=== PATIENT | male | born 1960 | race Hispanic/Latino ===

== ENCOUNTER 2019-01-02 20:04 | Inpatient (IN) | payer SELFPAY ==
[~2019-01-02] VITALS: Ht 167.6 cm; Wt 92.5 kg
[2019-01-02 20:33] LABS: BASOPHILS % (AUTO) 0.6 % (0.0-5.0); EOSINOPHILS % (AUTO) 4.5 % (0.0-8.0); LYMPHOCYTES % (AUTO) 30.9 % (21.0-51.0); MEAN CORPUSCULAR HEMOGLOBIN 30.6 pg (27.0-33.0); MEAN CORPUSCULAR HGB CONC 34.7 g/dL (32.0-36.0); MEAN CORPUSCULAR VOLUME 88.3 fL (79-99); MONOCYTES % (AUTO) 6.9 % (3.0-13.0); NEUTROPHILS % (AUTO) 57.1 % (40.0-77.0); PLATELET COUNT (AUTO) 243 K/uL (130-400); RED BLOOD CELL COUNT(AUTO) 4.54 MIL/uL (4.50-6.20); RED CELL DISTRIBUTION WIDTH 13.4 % (11.0-15.5); WHITE BLOOD COUNT (AUTO) 9.8 K/uL (4.8-10.8)
[2019-01-02 20:54] LABS: CREATININE 0.9 mg/dL (0.5-1.5); POTASSIUM 3.9 mmol/L (3.5-5.1)
[2019-01-02 20:59] LABS: ALBUMIN 3.4 g/dL (3.5-5.0); BILIRUBIN,TOTAL 0.3 mg/dL (0.2-1.0); TOTAL PROTEIN, SERUM 7.7 g/dL (6.0-8.3)
[2019-01-02 21:04] LABS: B-TYPE NATRIURETIC PEPTIDE 20 pg/mL (0-100)
[2019-01-03 00:20] LABS: CHOLESTEROL 221 mg/dL (<200); HDL CHOLESTEROL 25 mg/dL (29-71); LDL DIRECT 139 mg/dL (0-99); TRIGLYCERIDES 333 mg/dL (30-200)
[2019-01-03 00:23] LABS: HEMOGLOBIN A1C 8.4 % (4.0-6.0)
[2019-01-03] MEDS: IPRATROPIUM/ALBUTEROL SULFATE 3 ML SOLUTION IH SCH ×6 (02:00→22:43)
[2019-01-03] MEDS ORDERED: IPRATROPIUM/ALBUTEROL SULFATE 3 ML SOLUTION IH ONE ×3 (07:19→14:34)
[2019-01-03 07:27] LABS: CREATININE 0.9 mg/dL (0.5-1.5); POTASSIUM 3.9 mmol/L (3.5-5.1)
[2019-01-03 07:44] LABS: BASOPHILS % (AUTO) 0.8 % (0.0-5.0); EOSINOPHILS % (AUTO) 4.2 % (0.0-8.0); HEMATOCRIT 40.4 % (42-54); LYMPHOCYTES % (AUTO) 28.8 % (21.0-51.0); MEAN CORPUSCULAR HEMOGLOBIN 30.1 pg (27.0-33.0); MEAN CORPUSCULAR HGB CONC 34.1 g/dL (32.0-36.0); MEAN CORPUSCULAR VOLUME 88.4 fL (79-99); MONOCYTES % (AUTO) 8.2 % (3.0-13.0); PLATELET COUNT (AUTO) 254 K/uL (130-400); RED BLOOD CELL COUNT(AUTO) 4.57 MIL/uL (4.50-6.20); RED CELL DISTRIBUTION WIDTH 13.6 % (11.0-15.5); WHITE BLOOD COUNT (AUTO) 8.6 K/uL (4.8-10.8)
[2019-01-03] MEDS ORDERED: ASPIRIN 81MG TAB.CHEW ONE (07:59)
[2019-01-03] MEDS ORDERED: ATORVASTATIN CALCIUM 20 MG TABLET ONE (08:00)
[2019-01-03] MEDS ORDERED: ENOXAPARIN SODIUM 40 MG/0.4 ML SYRINGE SQ ONE (08:00)
[2019-01-03] MEDS ORDERED: FAMOTIDINE 20MG TAB 20 MG TAB ONE (08:00)
[2019-01-03] MEDS ORDERED: LEVETIRACETAM 500 MG TABLET PO ONE (08:01)
[2019-01-03] MEDS ORDERED: GUAIFENESIN-CODEINE 5 ML SYRUP ONE (08:02)
[2019-01-03] MEDS: ATORVASTATIN CALCIUM 20 MG TABLET PO SCH (09:00)
[2019-01-03] MEDS: LEVETIRACETAM 250 MG TABLET PO SCH ×2 (09:00→21:53)
[2019-01-03] MEDS: FAMOTIDINE 20MG TAB 20 MG TAB PO SCH ×2 (09:00→21:53)
[2019-01-03] MEDS: ASPIRIN 81MG TAB.CHEW PO SCH (09:00)
[2019-01-03] MEDS: ENOXAPARIN SODIUM 40 MG/0.4 ML SYRINGE SQ SCH (09:00)
[2019-01-03] MEDS: INSULIN HUMULIN R 100 UNIT/ML 3ML SQ SCH ×2 (16:30→21:00)
[2019-01-03 17:01] VITALS: BP 123/75
[2019-01-03 19:55] VITALS: BP 133/71
[2019-01-03] MEDS: GUAIFENESIN-CODEINE 5 ML SYRUP PO PRN (21:52)
[2019-01-03 23:46] VITALS: BP 112/65
[2019-01-04] MEDS: IPRATROPIUM/ALBUTEROL SULFATE 3 ML SOLUTION IH SCH ×6 (01:07→21:54)
[2019-01-04 03:51] VITALS: BP 124/77
[2019-01-04] MEDS: INSULIN HUMULIN R 100 UNIT/ML 3ML SQ SCH ×4 (05:44→21:00)
[2019-01-04] MEDS: GUAIFENESIN-CODEINE 5 ML SYRUP PO PRN (06:58)
[2019-01-04 07:43] VITALS: BP 121/69
[2019-01-04] MEDS: ATORVASTATIN CALCIUM 20 MG TABLET PO SCH (08:17)
[2019-01-04] MEDS: ASPIRIN 81MG TAB.CHEW PO SCH (08:17)
[2019-01-04] MEDS: LEVETIRACETAM 250 MG TABLET PO SCH ×2 (08:17→21:09)
[2019-01-04] MEDS: FAMOTIDINE 20MG TAB 20 MG TAB PO SCH ×2 (08:17→21:09)
[2019-01-04] MEDS: ENOXAPARIN SODIUM 40 MG/0.4 ML SYRINGE SQ SCH (08:18)
[2019-01-04 11:34] VITALS: BP 133/64
[2019-01-04] MEDS: GUAIFENESIN-CODEINE 5 ML SYRUP PO SCH ×2 (12:17→18:25)
[2019-01-04] MEDS ORDERED: METF-444 PO (12:29)
[2019-01-04 16:19] VITALS: BP 126/77
--- NOTE | 2019-01-04 19:08 | NUR ---
cm note met with patient and states resides at home with spouse independnet with ambulation and adls. no dme. was here visiting from [place]. [facility] dc plan is to return back to [place]. [facility] dc needs. has md in [place] he can see. Addendum: 01/04/19 at 1909 by KEYLA RESENDIZ CM Amended: Links added.
[2019-01-04 20:00] VITALS: BP 125/72
[2019-01-05 00:14] VITALS: BP 119/71
[2019-01-05] MEDS: GUAIFENESIN-CODEINE 5 ML SYRUP PO SCH ×5 (00:38→23:40)
[2019-01-05] MEDS: IPRATROPIUM/ALBUTEROL SULFATE 3 ML SOLUTION IH SCH ×4 (01:07→14:28)
[2019-01-05 04:00] VITALS: BP 106/64
[2019-01-05 05:39] LABS: HEMATOCRIT 38.9 % (42-54); MEAN CORPUSCULAR HEMOGLOBIN 30.1 pg (27.0-33.0); MEAN CORPUSCULAR HGB CONC 33.5 g/dL (32.0-36.0); MEAN CORPUSCULAR VOLUME 89.9 fL (79-99); PLATELET COUNT (AUTO) 254 K/uL (130-400); RED BLOOD CELL COUNT(AUTO) 4.33 MIL/uL (4.50-6.20); RED CELL DISTRIBUTION WIDTH 13.5 % (11.0-15.5); WHITE BLOOD COUNT (AUTO) 9.7 K/uL (4.8-10.8)
[2019-01-05 05:44] LABS: CREATININE 0.9 mg/dL (0.5-1.5); POTASSIUM 3.7 mmol/L (3.5-5.1)
[2019-01-05] MEDS: INSULIN HUMULIN R 100 UNIT/ML 3ML SQ SCH ×4 (06:55→20:28)
[2019-01-05 08:21] VITALS: BP 117/73
[2019-01-05] MEDS: FAMOTIDINE 20MG TAB 20 MG TAB PO SCH ×2 (08:32→19:31)
[2019-01-05] MEDS: LEVETIRACETAM 250 MG TABLET PO SCH ×2 (08:32→19:31)
[2019-01-05] MEDS: ASPIRIN 81MG TAB.CHEW PO SCH (08:32)
[2019-01-05] MEDS: ATORVASTATIN CALCIUM 20 MG TABLET PO SCH (08:32)
[2019-01-05] MEDS: ENOXAPARIN SODIUM 40 MG/0.4 ML SYRINGE SQ SCH (08:34)
[2019-01-05] MEDS ORDERED: LEVETIRACETAM 250 MG TABLET PO SCH (10:45)
[2019-01-05] MEDS ORDERED: GADODIAMIDE 10 MMOL/20 ML VIAL IV ONE (11:07)
[2019-01-05 11:36] VITALS: BP 128/71
[2019-01-05] MEDS ORDERED: PREDNISONE 20 MG TABLET PO SCH (13:15)
[2019-01-05] MEDS ORDERED: IPRATROPIUM/ALBUTEROL SULFATE 3 ML SOLUTION IH PRN (15:30)
[2019-01-05] MEDS ORDERED: METHYLPREDNISOLONE SOD SUCC 125MG/2ML VIAL IVP ONE (16:45)
[2019-01-05 16:55] VITALS: BP 111/65
[2019-01-05] MEDS ORDERED: METHYLPREDNISOLONE SOD SUCC 40MG/ML 1ML ONE (19:22)
[2019-01-05] MEDS ORDERED: LEVETIRACETAM 500 MG TABLET PO ONE (19:22)
[2019-01-05] MEDS: METHYLPREDNISOLONE SOD SUCC 40MG/ML 1ML IVP SCH (19:30)
[2019-01-05 20:04] VITALS: BP 138/84
[2019-01-06] VITALS: BP 117/74
[2019-01-06 04:00] VITALS: BP 135/76
[2019-01-06] MEDS: GUAIFENESIN-CODEINE 5 ML SYRUP PO SCH ×2 (05:17→12:49)
[2019-01-06] MEDS: INSULIN HUMULIN R 100 UNIT/ML 3ML SQ SCH ×3 (05:32→17:01)
[2019-01-06 07:48] VITALS: BP 114/66
[2019-01-06] MEDS: FAMOTIDINE 20MG TAB 20 MG TAB PO SCH (08:41)
[2019-01-06] MEDS: ATORVASTATIN CALCIUM 20 MG TABLET PO SCH (08:41)
[2019-01-06] MEDS: ASPIRIN 81MG TAB.CHEW PO SCH (08:41)
[2019-01-06] MEDS: METHYLPREDNISOLONE SOD SUCC 40MG/ML 1ML IVP SCH (08:41)
[2019-01-06] MEDS: LEVETIRACETAM 250 MG TABLET PO SCH (08:42)
[2019-01-06] MEDS: ENOXAPARIN SODIUM 40 MG/0.4 ML SYRINGE SQ SCH (08:45)
[2019-01-06 14:00] VITALS: BP 121/77
--- NOTE | 2019-01-06 14:35 | NUR ---
Received report from NIMA Harmon. Introduced myself to patient as new nurse. Patient alert and awake sitting up in bed. in no distress. Family at bedside. bed to lowest position. call light within reach.
[2019-01-06 16:09] VITALS: BP 130/81
[2019-01-06] MEDS ORDERED: LEVE500T8 PO (17:45)
--- NOTE | 2019-01-06 18:30 | NUR ---
Patient discharged in stable condition. Patient given discharge instruction, discharge prescription Prednisone and verbalized understanding to teaching. at bedside. Patient and live in [place] and stated while MAGDA [place] that they will not be f/u here in the [place] and will f/u with PCP in [place]. Instructed to f/u in 1 week with their doctor in [place]. Instructed to call 911 or seek medical help if SOB, chest pain severe pain, n/v, fainting episodes reoccur. pt/cg verbalized understanding.
== END 2019-01-06 19:00 | disposition home or self-care (01) | DRG 202 ==
LOC: EDBD 20:04 → EDH 20:04 → OBSVTOIN 20:05 → EDHIP 20:05 → 4AH 01-03 16:35
PROVIDERS: ADMIT Internal Medicine; ATTEND Internal Medicine
DX: J20.9 Acute bronchitis, unspecified (principal); E44.0 Moderate protein-calorie malnutrition; J44.1 Chronic obstructive pulmonary disease with (acute) exacerbation; J44.0 Chronic obstructive pulmonary disease with (acute) lower respiratory infection; E11.9 Type 2 diabetes mellitus without complications; E66.9 Obesity, unspecified; E78.5 Hyperlipidemia, unspecified; I10 Essential (primary) hypertension; K21.9 Gastro-esophageal reflux disease without esophagitis; K76.0 Fatty (change of) liver, not elsewhere classified; Z79.899 Other long term (current) drug therapy; R56.9 Unspecified convulsions; Z68.32 Body mass index [BMI] 32.0-32.9, adult
CPT/HCPCS: 36415; 70450; 70553; 71046; 71250; 80048; 80053; 80061; 82550; 82948; 83036; 83880; 84484; 85025; 85027; 87804; 93005; 93306; 93880; 94010; 94640; 94664; 95816; A9579; G0378; J1650; J1815; J2920